=== PATIENT | male | born 1995 | race Two or more races ===

== ENCOUNTER 2023-12-07 21:24 | Emergency (ER) | payer BC, OTHER ==
[~2023-12-07] VITALS: Ht 167.6 cm; Wt 86.0 kg
[2023-12-07] MEDS: HYDROmorphone HCL 2 MG/ML VL/or syr IM ONE (21:45)
[2023-12-08 00:40] VITALS: PULSE 71; RESP 16; O2SAT 96
[2023-12-08] MEDS: ONDANSETRON HCL 4 MG/2 ML VIAL ONE (02:05)
[2023-12-08] MEDS: ONDANSETRON HCL 4 MG/2 ML VIAL IV ONE (02:06)
[2023-12-08 02:18] VITALS: BP 130/68; PULSE 60; RESP 18; TEMP 98.6; O2SAT 95
== END 2023-12-08 02:19 | disposition short-term general hospital (02) ==
LOC: EDBD 21:24 → ER 21:24
DX: S02.31XA Fracture of orbital floor, right side, initial encounter for closed fracture (principal); V43.52XA Car driver injured in collision with other type car in traffic accident, initial encounter; Y93.89 Activity, other specified; Y92.89 Other specified places as the place of occurrence of the external cause; Y99.8 Other external cause status
CPT/HCPCS: 70450; 70486; 72125; 96372; 96374; 99285; J1170; J2405